=== PATIENT | male | born 1935 | race Caucasian/White ===

== ENCOUNTER 2019-09-18 10:28 | Inpatient (IN) ==
[2019-09-18] MEDS ORDERED: Aspirin 325 MG TABLET PO ONE (10:45)
[2019-09-18] MEDS ORDERED: Nitroglycerin 0.4 MG TAB.SUBL SL PRN (10:45)
[2019-09-18] MEDS ORDERED: Nitroglycerin 0.4 MG TAB.SUBL SL ONE (10:48)
[2019-09-18 10:59] LABS: Basophils % 0.9 %; Eosinophils # 0.4 K/mcL (0.0-0.6); Eosinophils % 7.7 %; Hematocrit 40.4 % (37.5-50.1); Hemoglobin 13.8 g/dL (12.9-16.9); Immature Granulocytes % 0.2 % (0-4); Lymphocytes # 0.6 K/mcL (0.6-4.6); Lymphocytes % 13.1 %; Mean Corpuscular HGB Conc 34.2 g/dL (31.6-35.5); Mean Corpuscular Volume 93.7 fL (83.0-100.0); Mean Platelet Volume 8.7 fL (9.4-12.4); Monocytes # 0.4 K/mcL (0.0-1.3); Neutrophils # 3.2 K/mcL (1.6-8.9); Platelet Count 129 K/mcL (140-400); Red Blood Count 4.31 M/mcL (4.19-5.50); Red Cell Distribution Width 13.4 % (11.5-14.5); Segmented Neutrophils % 69.1 %; White Blood Count 4.7 K/mcL (4.3-11.1)
[2019-09-18 11:06] LABS: Prothrombin Time 11.4 Seconds (9.4-12.1)
[2019-09-18] MEDS ORDERED: *HR* Heparin 5,000 UNIT/ML VIAL ONE (11:07)
[2019-09-18] MEDS ORDERED: *HR* Ticagrelor 90 MG TABLET PO ONE (11:07)
[2019-09-18] MEDS ORDERED: *HR* Heparin 5,000 UNIT/ML VIAL IVP PRN ×2 (11:07)
[2019-09-18] MEDS ORDERED: *HR* Heparin 5,000 UNIT/ML VIAL IVP ONE (11:07)
[2019-09-18] MEDS ORDERED: *HR* Ticagrelor 90 MG TABLET ONE (11:07)
[2019-09-18 11:09] LABS: Activated Partial Thrombo Time 29.6 Seconds (26.0-36.0)
[2019-09-18] MEDS ORDERED: Heparin 25,000 UNIT/250 ML D5W 25,000 UNIT/250 ML IV.SOLN IVC SCH (11:15)
[2019-09-18 11:18] LABS: BUN/Creatinine Ratio 21 (6-26); Blood Urea Nitrogen 20 mg/dL (8-23); Calcium 9.4 mg/dL (8.6-10.3); Carbon Dioxide 22 mEq/L (23-29); Chloride 108 mEq/L (98-107); Glucose 190 mg/dL (70-105); Osmolality,Calculated 292 (280-300); Potassium 3.8 mEq/L (3.5-5.1); Sodium 137 mEq/L (136-145); eGFR For African Americans > 60 (> 60); eGFR For Non-African Americans > 60 (> 60)
[2019-09-18 11:20] LABS: Troponin I < 0.03 ng/mL (< 0.04)
[2019-09-18] MEDS ORDERED: 0.9 % Sodium Chloride 1,000 ML ONE ×3 (11:38→15:54)
[2019-09-18] MEDS ORDERED: Nitroglycerin 1,000 MCG/10 ML VIAL IV ONE (11:39)
[2019-09-18] MEDS ORDERED: ISOVUE-370 200 ML INFUS..BTL ONE (11:39)
[2019-09-18] MEDS ORDERED: *HR* Heparin 10,000 UNIT/10 ML VIAL ONE (11:39)
[2019-09-18] MEDS ORDERED: Heparin 1,000 UNITS/500 mL 500 ML ONE (11:39)
[2019-09-18] MEDS ORDERED: *HR* Midazolam HCl 2 MG/2 ML VIAL ONE (12:05)
[2019-09-18] MEDS ORDERED: *HR* FentaNYL (PF) 100 MCG/2 ML VIAL ONE (12:05)
[2019-09-18] MEDS ORDERED: Tirofiban 12.5 MG/250ML 12.5 MG/250 ML BAG ONE (12:25)
[2019-09-18] MEDS ORDERED: *HR* Atropine Sulfate 1 MG/10 ML SYRINGE ONE ×2 (12:25→15:51)
[2019-09-18] MEDS ORDERED: Tirofiban 12.5 MG/250ML 12.5 MG/250 ML BAG IVC SCH (13:00)
[2019-09-18] MEDS: Acetaminophen 325 MG TABLET PO PRN (20:00)
[2019-09-18] MEDS: *HR* Ticagrelor 90 MG TABLET PO SCH (20:00)
[2019-09-19] MEDS: Acetaminophen 325 MG TABLET PO PRN ×2 (03:52→17:10)
[2019-09-19] MEDS: Aspirin 81 MG TAB.CHEW PO SCH (08:18)
[2019-09-19] MEDS: *HR* Ticagrelor 90 MG TABLET PO SCH ×2 (08:18→20:10)
[2019-09-19 13:11] LABS: Albumin 3.8 g/dL (3.5-5.7); Albumin/Globulin Ratio 1.5 (1.1-2.2); Bilirubin,Direct 0.1 mg/dL (0.0-0.2); Bilirubin,Indirect 0.4 mg/dL (0.0-1.0); Bilirubin,Total 0.5 mg/dL (0.3-1.0); Globulin 2.6 g/dL (2.4-3.5); Total Protein 6.4 g/dL (6.4-8.9)
[2019-09-19] MEDS: *HR* Heparin 5,000 UNIT/ML VIAL SQ SCH (17:09)
[2019-09-20] MEDS: *HR* Heparin 5,000 UNIT/ML VIAL SQ SCH (05:19)
[2019-09-20] MEDS: *HR* Ticagrelor 90 MG TABLET PO SCH (08:51)
[2019-09-20] MEDS: Aspirin 81 MG TAB.CHEW PO SCH (08:51)
[2019-09-20] MEDS ORDERED: FLU Vac QV 19-20 (6Month+)/PF 0.5 ML SYRINGE IM ONE (11:13)
[2019-09-20 11:44] VITALS: BP 101/66
== END 2019-09-20 12:13 | disposition home or self-care (01) | DRG 247 ==
LOC: 2NNU 10:28 → EMEROOARM 10:28 → 2NNU 12:02
PROVIDERS: ADMIT Internal Medicine Cardiovascular Disease; ATTEND Internal Medicine Cardiovascular Disease